=== PATIENT | female | born 1950 | race Caucasian/White ===

== ENCOUNTER 2022-02-24 05:23 | Day surgery (SDC) | payer MEDICARE ==
[2022-02-16 14:32] LABS: BASOPHILS # (AUTO) 0.1 X10'3 (0-0.2); BASOPHILS % (AUTO) 1.2 % (0-1); EOSINOPHILS # (AUTO) 0.1 X10'3 (0-0.9); EOSINOPHILS % (AUTO) 1.2 % (0-6); LYMPHOCYTES # (AUTO) 1.4 X10'3 (1.1-4.8); LYMPHOCYTES % (AUTO) 28.1 % (21-51); MEAN CORPUSCULAR HEMOGLOBIN 32.1 PG (27.0-31.0); MEAN CORPUSCULAR HGB CONC 33.7 g/dL (33.0-36.5); MEAN PLATELET VOLUME 7.6 FL (7.4-10.4); MONOCYTES # (AUTO) 0.5 X10'3 (0-0.9); MONOCYTES % (AUTO) 9.7 % (2-12); NEUTROPHILS % (AUTO) 59.8 % (42-75); PRE OP HEMATOCRIT 40.5 % (35.0-45.0); PRE OP HEMOGLOBIN 13.7 g/dL (12.0-16.0); PRE OP PLATELET COUNT 218 X10'3 (140-440); RED BLOOD COUNT 4.27 X10'6 (4.20-5.60); RED CELL DISTRIBUTION WIDTH 13.7 % (11.5-14.5)
[2022-02-16 14:48] LABS: ALBUMIN 3.7 G/DL (3.4-5.0); BLOOD UREA NITROGEN 22 MG/DL (7-18); CALCIUM 9.4 MG/DL (8.5-10.1); CHLORIDE 104 MMOL/L (99-107); CREATININE 0.88 MG/DL (0.40-0.90); PRE OP ANION GAP 5 (8-16); PRE OP BILIRUB, TOTAL 0.4 MG/DL (0.0-1.0); PRE OP GLUCOSE 120 MG/DL (70-104); PRE OP POTASSIUM 3.6 MMOL/L (3.4-5.1); PRE OP SODIUM 141 MMOL/L (135-145); TOTAL PROTEIN 7.3 G/DL (6.4-8.2); eGFR 63 ML/MIN
[2022-02-16 14:49] LABS: ALKALINE PHOSPHATASE 57 IU/L (46-116); PRE OP ALT 18 U/L (30-65); PRE OP AST 17 U/L (10-37)
[~2022-02-24] VITALS: Ht 165.1 cm; Wt 63.6 kg
[2022-02-24] VITALS (8 sets, daily range): BP systolic 130–158; BP diastolic 66–90
[~2022-02-24 05:23] MED LIST: CALCIUM; MAGNESIUM; VITAMIN B-12; VITAMIN D3; ringers solution, lacted 1,000 ML IV SCH
[2022-02-24] MEDS ORDERED: ceFAZolin inj. 2,000 MG in dextrose 5%-water 100 ML IV ONE (05:30)
[2022-02-24] MEDS ORDERED: famotidine 20mg tablet PO ONE (05:30)
[2022-02-24] MEDS ORDERED: TETRACAINE 0.5% 4 ML OPHTHALMIC DROPS ONE (06:44)
[2022-02-24] MEDS ORDERED: LIDOCAINE 1%/EPI 1:100,000 inj. 10 ML multi-dose vial ONE (06:44)
[2022-02-24] MEDS ORDERED: morphine 2 MG/ML inj. syringe IV PRN (07:00)
[2022-02-24] MEDS ORDERED: hydrALAZINE 20mg/ml inj. IV PRN (07:00)
[2022-02-24] MEDS ORDERED: fentaNYL/PF 50MCG/1 ML 2ML syringe IV PRN ×2 (07:00)
[2022-02-24] MEDS ORDERED: ringers solution, lacted 1,000 ML IV SCH (07:00)
[2022-02-24] MEDS ORDERED: ondansetron/PF 4mg/2ml inj IV PRN (07:00)
[2022-02-24] MEDS ORDERED: morphine 4 MG/ML inj SYRINge IV PRN (07:00)
[2022-02-24] MEDS ORDERED: labetalol 20mg/4ml (5mg/ml) syringe IV PRN (07:00)
[2022-02-24] MEDS ORDERED: fentaNYL/PF 50MCG/1 ML 2ML syringe ONE (07:06)
[2022-02-24] MEDS ORDERED: midazolam 1 mg/ML 2ml injection ONE (07:06)
[2022-02-24] MEDS ORDERED: mineral oil/petrolatum ophthal oint ONE (07:30)
--- NOTE | 2022-02-24 08:15 | NUR ---
Received from OR via [facility], accompanied by Anesthesiologist DR. MOHAMUD and report given by Anesthesiologist AND OR NURSE. PATIENT AWAKE ON ROOM AIR, NO S/S OF PAIN, V/S WNL, 20G IV TO RIGHT HAND, BILAT EYELID STITCHES CLEAN WITH NO BLEEDING PRESENT. ICE APPLIED. Addendum: 02/24/22 at 0833 by Sofi Rich RN Amended: Links added.
--- NOTE | 2022-02-24 09:05 | NUR ---
PT HAS MET D/C CRITERIA AND IS UP AND DRESSED, VSS, DENIES ANY PAIN, PIV D/CD, DISCUSSED HOME CARE INSTRUCTIONS PER DR. DURAN FORM AND MEDICATIONS, ALL QUESTIONS ANSWERED, PT TAKEN WITH BELONGINGS TO VEHICLE, TRANSPORTED BY HOME. Addendum: 02/24/22 at 0920 by Sofi Rich RN Amended: Links added.
== END 2022-02-24 09:05 | disposition home or self-care (01) ==
LOC: PAS 05:23
PROVIDERS: ATTEND Specialist
DX: H02.831 Dermatochalasis of right upper eyelid (principal); H02.834 Dermatochalasis of left upper eyelid; Z79.899 Other long term (current) drug therapy; Z98.890 Other specified postprocedural states; G43.909 Migraine, unspecified, not intractable, without status migrainosus
CPT/HCPCS: 15822; 36415; 80053; 85025; 93005; J0690; J2250; J3010; J3490; J7030; J7060; J7120; Z7506; Z7512; A4215; A4615; A6410; A7000